=== PATIENT | male | born 1975 | race Caucasian/White ===

== ENCOUNTER 2025-06-29 06:33 | Emergency (ER) | payer OTHER ==
[2025-06-29] MEDS ORDERED: MULTIVITAMINS 10 ML VIAL (INJ) IV ONE (06:39)
[2025-06-29] MEDS ORDERED: THIAMINE 200 MG/2 ML INJ ONE (06:39)
[2025-06-29] MEDS ORDERED: KETOROLAC 30 MG/ML INJ ONE (06:39)
[2025-06-29] MEDS ORDERED: CEFAZOLIN SODIUM 1 GM/VIAL ONE (06:39)
[2025-06-29] MEDS ORDERED: FOLIC ACID 5 MG/ML VIAL ONE (06:39)
[2025-06-29] MEDS ORDERED: TDAP (DIPHTH,PERTUSS(ACELL),TET VAC) 0.5 ML VIAL IMVAC ONE (06:40)
[2025-06-29] MEDS ORDERED: NA CHLORIDE 0.9% 1,000 ML ONE (06:40)
[2025-06-29] MEDS ORDERED: NA CHLORIDE 0.9% 100 ML ONE (06:40)
[2025-06-29] MEDS ORDERED: ONDANSETRON 4 MG/2 ML VIAL ONE (06:44)
[2025-06-29] MEDS ORDERED: LIDOCAINE 1% MPF 30 ML VIAL ONE (06:45)
[2025-06-29 07:55] LABS: Absolute Lymphocytes (CBC) 1.8 K/uL (0.7-4.9); Hematocrit 37.4 % (39.6-49.0); Hemoglobin 13.3 g/dL (13.6-17.9); MCH 35.8 pg (27.0-35.0); MCHC 35.5 g/dL (32.0-36.0); MCV 100.7 fL (80-100); MPV 7.7 fL (7.6-11.3); Nucleated RBC Absolute Count 0.0 (0-0); Nucleated Red Blood Cells % 0.1 % (0-0); RBC Red Blood Cell Count 3.71 M/uL (4.33-5.43); White Blood Count 9.40 thou/uL (4.3-10.9)
[2025-06-29 08:12] LABS: ALT/SGPT 25.0 U/L (16-61); AST/SGOT 24.0 U/L (15-37); Albumin 3.7 g/dL (3.4-5.0); Albumin/Globulin Ratio 1.1 (1.1-1.8); Alkaline Phosphatase 76.0 U/L (45-117); Anion Gap 15.8 mEq/L (5.0-15.0); BUN Blood Urea Nitrogen 8.0 mg/dL (7-18); Globulin 3.4 g/dL (2.3-3.5); Glucose Level 100.0 mg/dL (74-106); Potassium 3.8 mEq/L (3.5-5.1)
--- NOTE | 2025-06-29 08:26 | RAD REPORT ---
EXAM: CT CHEST, ABDOMEN AND PELVIS WITHOUT CONTRAST CLINICAL INDICATION: Male, 49 years old. [facility] MAIN right flank injury Bed Name: 4 TECHNIQUE: CT chest, abdomen and pelvis was performed, without IV contrast, as per department protoco l. Axial, sagittal and coronal reconstructions were obtained. One or more of the following dose reduction techniques were used: Automated exposure control, adjustment of the mA and/or kV according to the patient size, and/or iterative reconstruction. Unless otherwise specified, incidental findings do not require dedicated imaging follow-up. COMPARISON: No prior exam. FINDINGS: The lack of intravenous contrast limits the sensitivity of this exam for evaluation of solid visceral organs, vascular structures, and retroperitoneum. Chest: LOWER NECK/CHEST WALL: Visualized thyroid gland and soft tissues are normal. LUNGS AND AIRWAYS: Airways are clear. No evidence of airspace or interstitial process. No suspicious nodules. 6 mm right upper lobe calcified granuloma abutting the major fissure. PLEURA: No pleural effusion. No pneumothorax. Hemidiaphragms are normally positioned. MEDIASTINUM AND LYMPH NODES: No mediastinal mass or fluid collection. Normal size mediastinal, hilar, and axillary lymph nodes. THORACIC AORTA: Normal caliber and configuration. PULMONARY ARTERIES: Normal caliber. HEART: Unremarkable. Abdomen/Pelvis LIVER: Normal in size and contour. No focal lesion. GALLBLADDER/BILE DUCTS: No biliary ductal dilatation. PANCREAS: No mass, ductal dilation, or neha-pancreatic fluid. SPLEEN: Normal size. No focal lesion. ADRENALS: Normal; no mass. KIDNEYS AND URETERS: Normal size and contour. No hydronephrosis. GASTROINTESTINAL TRACT: Stomach is non-dilated. Small bowel has normal course and caliber. No colonic wall thickening or pericolonic inflammatory changes. PERITONEUM: No free fluid. LYMPH NODES: No lymphadenopathy. ABDOMINAL AORTA AND OTHER VESSELS: Normal caliber aorta and IVC. URINARY BLADDER: Normal contour. REPRODUCTIVE ORGANS: No pathologic process. MUSCULOSKELETAL: Bilateral nondisplaced rib fractures, with callus formation. ADDITIONAL FINDINGS: None IMPRESSION: Bilateral nondisplaced rib fractures, with callus formation. No other acute or significant abnormalities in the chest, abdomen, or pelvis.
--- NOTE | 2025-06-29 08:38 | RAD REPORT ---
EXAMINATION: XR RIGHT SHOUDLER CLINICAL INDICATION: Male, 49 years old. right shoulder laceration RIGHT TECHNIQUE:Two view radiograph of the right shoulder were obtained. COMPARISON: None. FINDINGS: No acute bone or joint abnormality detected. No joint effusion. Superimposition extracorpor eal material somewhat limits evaluation at the level of the elbow joint. Soft tissue defect and irregularity along the medial forearm just distal to the elbow. No radiopaque foreign body. IMPRESSION: No acute osseous abnormalities. Soft tissue abnormalities as above
[2025-06-29] MEDS ORDERED: LIDOCAINE 2% W/EPI 1:200,000 MPF 20 ML VIAL IM ONE (08:41)
--- NOTE | 2025-06-29 08:52 | RAD REPORT ---
EXAMINATION: XR Elbow Right 2 View CLINICAL INDICATION: Male, 49 years old. right elbow laceration RIGHT TECHNIQUE: 3 view radiographs of the right elbow were obtained. COMPARISON: No prior exam. FINDINGS: No acute bone or joint abnormality detected. No joint effusion. Superimposition extracorporeal material somewhat limits evaluation at the level of the elbow joint. Soft tissue defect and irregularity along the medial forearm just distal to the elbow. No radiopaque foreign body. IMPRESSION: No acute osseous abnormalities. Soft tissue abnormalities as above.
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
[2025-06-29 11:39] VITALS: BP 114/78; TEMP 98; O2SAT 99
== END 2025-06-29 11:05 | disposition home or self-care (01) ==
LOC: ER 06:33
DX: S41.011A Laceration without foreign body of right shoulder, initial encounter (principal); S51.811A Laceration without foreign body of right forearm, initial encounter; W18.30XA Fall on same level, unspecified, initial encounter; Z23 Encounter for immunization; F10.129 Alcohol abuse with intoxication, unspecified; F17.210 Nicotine dependence, cigarettes, uncomplicated
CPT/HCPCS: 85025; 36415; 80053; 71250; 74176; 73070; 73030; 90715; 96372; 99285; 12004; 82077; J1885; J3411; J2405; J7030; J0690; J2003

== ENCOUNTER 2025-07-13 10:11 | Emergency (ER) | payer OTHER ==
--- NOTE | 2025-07-13 10:34 | EDPHYS ---
Physician Documentation [facility] Name: Moose Hernandez Age: 49 yrs Sex: Male : 1975 Arrival Date: 07/13/2025 Time: 10:11 Bed 10 Private MD: ED Delfino Monteiro HPI: 07/13 10:55 This 49 yrs old Male presents to ER via Ambulatory with complaints of Suture Removal. sb4 10:55 The patient has sutures on the right arm. Previous treatment: The patient was initially sb4 treated 14 day(s) ago, the care was rendered at [facility], Treatment type: The patient's original treatment included sutures. Historical: - Allergies: 10:17 PENICILLINS; ll1 - PMHx: 10:22 "Bad knees and back":; ll1 - Immunization history:: Adult Immunizations up to date. - Infectious Disease History:: Denies. - Social history:: Smoking status: Patient reports the use of cigarette tobacco products, smokes one-half pack cigarettes per day. ROS: 10:56 Constitutional: Negative for fever, chills, and weight loss, sb4 10:56 Skin: Positive for per HPI, 10:56 All other systems are negative, Exam: 10:56 Constitutional: This is a well developed, well nourished patient who is awake, alert, sb4 and in no acute distress. Head/Face: Normocephalic, atraumatic. Eyes: Extra-ocular motions intact. Periorbital areas with no swelling, redness, or edema. ENT: Mucous membranes moist. Respiratory: No increased work of breathing, no retractions or nasal flaring. 10:56 Skin: Wound recheck: Suture laceration closure: the wound is healing well, the edges are well approximated, no evidence of dehiscence, no drainage, no erythema, no swelling, Vital Signs: 10:23 BP 153 / 83; Pulse 50; Resp 17; Temp 98; Pulse Ox 100% ; Pain 0/10; ll1 10:23 Pain Scale: Adult ll1 Procedures: 10:56 Suture/Staple removal: Removed 8 sutures, from right trapezius, site appears well sb4 healed, dressed with Neosporin, Patient tolerated well. 10:57 Suture/Staple removal: Removed 6 sutures, from palmar aspect of right forearm, site sb4 appears well healed, dressed with Neosporin, Patient tolerated well. 10:57 Suture/Staple removal: Removed 3 sutures, from right elbow, site appears well healed, sb4 dressed with Neosporin, Patient tolerated well. MDM: 10:18 Medical Screening Exam initiated sb4 10:57 Data reviewed: vital signs, nurses notes, and as a result, I will discharge patient. sb4 Counseling: I had a detailed discussion with the patient and/or guardian regarding the historical points, exam findings, and any diagnostic results supporting the discharge/admit diagnosis, the presence of at least one elevated blood pressure reading (>120/80) during this emergency department visit, the need for outpatient follow up, for definitive care, to return to the emergency department if symptoms worsen or persist or if there are any questions or concerns that arise at home. Administered Medications: No medications were administered Disposition Summary: 07/13/25 10:34 Discharge Ordered Notes: Location: Home sb4 Problem: new sb4 Symptoms: have improved sb4 Condition: Stable sb4 Diagnosis - Encounter for removal of sutures sb4 Followup: sb4 - With: Private Physician - When: As needed - Reason: Recheck today's complaints, Re-evaluation by your physician Discharge Instructions: - Discharge Summary Sheet sb4 - Suture Removal, Care After sb4 Forms: - Patient Portal Instructions sb4 - Leadership Thank You Letter sb4 Signatures: Elba Perez, RN RN ll1 Christa Khan PA-C PA-C sb4
--- NOTE | 2025-07-13 10:34 | ER ---
Nurse's Notes [facility] Name: Moose Hernandez Age: 49 yrs Sex: Male : 1975 Arrival Date: 07/13/2025 Time: 10:11 Bed 10 Private MD: Diagnosis: Encounter for removal of sutures Presentation: 07/13 10:23 Chief complaint: Patient states: Needs sutures removed from R arm and R shoulder, ll1 placed 2 weeks ago. Coronavirus screen: Client denies travel out of the [place] in the last 14 days. At this time, the client does not indicate any symptoms associated with coronavirus-19. Ebola Screen: Patient denies travel to an Ebola-affected area in the 21 days before illness onset. Initial Sepsis Screen: Does the patient meet any 2 criteria? No. Patient's initial sepsis screen is negative. Does the patient have a suspected source of infection? No. Patient's initial sepsis screen is negative. Risk Assessment: Do you want to hurt yourself or someone else? Patient reports no desire to harm self or others. Onset of symptoms was June 29, 2025. 10:23 Method Of Arrival: Ambulatory ll1 10:23 Acuity: PRIYA 4 ll1 Triage Assessment: 10:18 General: Appears in no apparent distress. Behavior is calm, cooperative, appropriate ll1 for age. Pain: Denies pain. Neuro: No deficits noted. Cardiovascular: No deficits noted. Respiratory: No deficits noted. Derm: Reports Stitches removed from R arm and R shoulder area. Musculoskeletal: Circulation, motion, and sensation intact. Capillary refill < 3 seconds, in right fingers. Historical: - Allergies: 10:17 PENICILLINS; ll1 - PMHx: 10:22 "Bad knees and back":; ll1 - Immunization history:: Adult Immunizations up to date. - Infectious Disease History:: Denies. - Social history:: Smoking status: Patient reports the use of cigarette tobacco products, smokes one-half pack cigarettes per day. Screenin:36 [facility] ED Fall Risk Assessment (Adult) History of falling in the last 3 months, ll1 including since admission No falls in past 3 months (0 pts) Confusion or Disorientation No (0 pts) Intoxicated or Sedated No (0 pts) Impaired Gait No (0 pts) Mobility Assist Device Used No (0 pt) Altered Elimination No (0 pt) Score/Fall Risk Level 0 - 2 = Low Risk Maintained a safe environment, Hourly rounding (assess needs \\T\\ fall precautionary measures) done. Abuse screen: Denies threats or abuse. Nutritional screening: No deficits noted. Tuberculosis screening: No symptoms or risk factors identified. Vital Signs: 10:23 BP 153 / 83; Pulse 50; Resp 17; Temp 98; Pulse Ox 100% ; Pain 0/10; ll1 10:23 Pain Scale: Adult ll1 ED Course: 10:15 Patient arrived in ED. cj3 10:16 Christ[facility] sb4 10:16 Delfino Gardner MD is Attending Physician. sb4 10:17 Arm band placed on Patient placed in an exam room, on a stretcher. ll1 10:20 Patient has correct armband on for positive identification. Provided Education on: ER ll1 procedures and process. 10:25 Triage completed. ll1 10:37 No provider procedures requiring assistance completed. Patient did not have IV access ll1 during this emergency room visit. Administered Medications: No medications were administered Medication: 10:38 VIS not applicable for this client. ll1 Outcome: 10:34 Discharge ordered by . sb4 10:37 Discharged to home ambulatory, ll1 10:37 Condition: stable 10:37 Discharge instructions given to patient, Instructed on discharge instructions, follow up and referral plans. Demonstrated understanding of instructions, follow-up care, left with verbal discharge orders only. 10:38 Patient left the ED. ll1 Signatures: Elba Perez RN RN ll1 Christa Khan PA-C PA-C sb4 Diane Flores cj3
[2025-07-13 14:08] VITALS: BP 153/83; TEMP 98; O2SAT 100
== END 2025-07-13 10:38 | disposition home or self-care (01) ==
LOC: ER 10:11
DX: Z48.02 Encounter for removal of sutures (principal); Z88.0 Allergy status to penicillin; F17.210 Nicotine dependence, cigarettes, uncomplicated
CPT/HCPCS: 99282